=== PATIENT | male | born 1960 | race Caucasian/White ===

== ENCOUNTER → 2021-10-01 | Outpatient (CLI) | payer OTHER ==
--- NOTE | 2021-10-01 12:49 | RAD ---
EXAM: Nuclear bone scan. HISTORY: Prostate cancer. COMPARISON: CT dated 10/07/2020. TECHNIQUE: Following the intravenous injection of 25 mCi of Tc 99m labeled methylene diphosphonate (M DP), whole body imaging was performed. FINDINGS: There is increased radiotracer activity involving the right greater than left sternoclavicu lar joints and shoulders, likely degenerative in etiology. There is a focus of increased radiotracer activity involving the left hand centered at the base of the left thumb, the location of which favors a degenerative etiology. There is suspected degenerative activity involving the lower lumbar spine. There is no convincing osseous metastatic disease. IMPRESSION: 1. No convincing osseous metastatic disease. 2. Suspected degenerative activity involving the sternoclavicular joints, shoulders, lumbar spine and base of the left first carpal metacarpal joint. This can be further assessed with plain radiographs if there is clinical concern. Electronically signed by: Freida Taylor MD (10/01/2021 12:47 PM) [id number]
== END ==
LOC: NM 08:47
PROVIDERS: ATTEND Urology
DX: C61 Malignant neoplasm of prostate (principal)
CPT/HCPCS: 78306; A9503